=== PATIENT | female | born 1995 | race Caucasian/White ===

== ENCOUNTER 2023-09-04 18:14 | Outpatient (CLI) | payer OTHER, SELFPAY ==
[2023-09-04 22:30] LABS: Chlamydia DNA Amplified* NOT DETECTED (No Detected); GC DNA Amplified* NOT DETECTED (No Detected)
== END 2023-09-04 18:15 | disposition home or self-care (01) ==
PROVIDERS: Visit Provider Registered Nurse
DX: Z34.91 Encounter for supervision of normal pregnancy, unspecified, first trimester (principal)
CPT/HCPCS: 86592; 86703; 86704; 86706; 86762; 86787; 86803; 86850; 86900; 86901; 87086; 87340; 87491; 87591

== ENCOUNTER 2023-11-21 06:56 | Outpatient (CLI) | payer OTHER, SELFPAY ==
--- NOTE | 2023-11-21 07:15 | US_ITS ---
Patient: CEM GREGORIO Facility:?[facility] Patient ID:?[id number] Site Patient ID:?[id number]. Site :?[id number] Study:?US-OB Pelvis anatomy-11/21/2023 8:12:37 AM Ordering Physician:VIKA Final Report: INDICATION: Evaluate anatomy. COMPARISON: none TECHNIQUE: Real time us scale imaging of the fetus was performed as well as color Doppler analysis of the umbilical vessels. FINDINGS: Sonographic imaging demonstrates a single living intrauterine gestation. Fetus demonstrates a regular cardiac rate of 142 beats per minute. Fetus has a yakelin breech position. The placenta lies anteriorly without evidence of placenta previa. Placental edge 4.0 cm from the internal cervical os. Amniotic fluid volume appears normal. Single deepest vertical pocket: 4.5 cm. The cervix is closed and measures 3.7 cm in length. The composite ultrasound gestational age is calculated at 21 weeks 1 day with an estimated sonographic due date of 04/01/2024. The estimated weight is 420 grams which lies at the 86th %. The following biometric measurements were obtained: Biparietal diameter: 4.8 cm/20 weeks 4 days 48th% Head circumference: 18.1 cm/20 weeks 4 days 39th% Abdominal circumference: 17.3 cm/22 weeks 2 days 90th% Femur length: 3.4 cm/20 weeks 5 days 44th% The HC/AC ratio measures: 1.05 range (1.06-1.25) On anatomic survey, there is a normal appearance of the cerebral ventricles, cavum septi pellucidi, cisterna magna and cerebellum. The nose, lips, and facial profile appear normal. The cervical, thoracic and lumbar spine are well visualized and appear normal. There is a normal four-chamber heart view and the left and right ventricular outflow tracts appear normal. The diaphragm and stomach appear normal. The kidneys and bladder also appear normal. There is a normal three-vessel cord and cord insertion site. The four extremities appear normal. IMPRESSION: Normal OB ultrasound exam with concordance of clinical and sonographic dating. No intrinsic abnormalities noted on anatomic survey. Dictated by Rayn Abernathy MD @ 11/21/2023 11:11:31 AM Signed by:?Ryan Abernathy MD @11/21/2023 11:11:31 AM (Electronic Signature)
== END 2023-11-21 06:57 | disposition home or self-care (01) ==
LOC: US 06:57
PROVIDERS: Visit Provider Physician Assistant
DX: Z34.92 Encounter for supervision of normal pregnancy, unspecified, second trimester (principal); Z3A.21 21 weeks gestation of pregnancy
CPT/HCPCS: 76805

== ENCOUNTER 2024-01-18 15:12 | Outpatient (CLI) | payer OTHER, SELFPAY | END 2024-01-18 15:13 | disposition home or self-care (01) | LOC: NFLDREF 01-21 05:14 | PROVIDERS: Visit Provider Advanced Practice Midwife | DX: Z34.03 Encounter for supervision of normal first pregnancy, third trimester (principal) | CPT/HCPCS: 86592 ==

== ENCOUNTER 2024-03-12 14:55 | Outpatient (CLI) | payer OTHER, SELFPAY ==
[2024-03-13 22:57] LABS: Strep B DNA Probe POSITIVE (Negative)
[2024-03-13 23:11] LABS: Strep B Susceptibility Needed? No
== END 2024-03-12 14:56 | disposition home or self-care (01) ==
LOC: NFLDREF 14:55
PROVIDERS: Visit Provider Advanced Practice Midwife
DX: Z34.93 Encounter for supervision of normal pregnancy, unspecified, third trimester (principal); Z3A.36 36 weeks gestation of pregnancy
CPT/HCPCS: 87081; 87653

== ENCOUNTER 2024-04-10 03:35 | Inpatient (IN) | payer OTHER, SELFPAY ==
[2024-04-10] VITALS (62 sets, daily range): BP systolic 126–185; BP diastolic 71–98; PULSE 57–96; RESP 16–22; TEMP 36.4–36.8; O2SAT 71–100; BMI 35.5
[2024-04-10 04:42] LABS: Basophils Absolute Auto 0.01 K/uL (0.00-0.30); Basophils Percent Auto 0.1 % (0.0-3.0); Eosinophils Absolute Auto 0.04 K/uL (0.00-0.50); Eosinophils Percent Auto 0.4 % (0.0-7.0); Hematocrit 35.9 % (33.0-51.0); Hemoglobin* 11.6 gm/dL (12.0-16.0); Immature Granulocytes Abs Auto 0.02 K/uL (0.00-0.30); Immature Granulocytes Pct Auto 0.2 %; Lymphocytes Absolute Auto 2.05 K/uL (0.90-2.90); Mean Corpuscular HGB Conc 32 gm/dL (32-36); Mean Corpuscular Hemoglobin 28 pg (26-34); Mean Corpuscular Volume 85 fL (80-100); Monocytes Percent Auto 7.9 % (0.0-11.0); Neutrophils Absolute Auto 6.85 K/uL (1.7-7.0); Neutrophils Percent Auto 70.4 % (42.0-72.0); Platelet Count* 186 K/uL (140-440); RDW Coefficient of Variation % 13.3 % (11.5-15.5); Red Blood Count 4.21 m/uL (4.00-5.20); Slide Review Reflex No; White Blood Count* 9.74 K/uL (4.50-11.00)
[2024-04-10 04:57] LABS: Alanine Aminotransferase* 15 U/L (4-35); Aspartate Amino Transferase* 25 U/L (12-35); Blood Urea Nitrogen* 8 mg/dL (5-24); Creatinine* 0.6 mg/dL (0.5-1.5); Est. Creatinine Clearance* 136.96; Estimated Glomerular Filt Rate 126 ml/min
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
[2024-04-10] MEDS: AMPICILLIN 2 GM in 0.9 % SODIUM CHLORIDE Mini-bag 100 ML IVPB (05:22)
[2024-04-10] MEDS: LACTATED RINGERS 1000 ML 1,000 ML 125 ML IV (05:23)
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
[2024-04-10] MEDS: AMPICILLIN 1 GM in 0.9 % SODIUM CHLORIDE Mini-bag 100 ML IVPB ×2 (09:24→14:28)
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
[2024-04-10] MEDS: OXYTOCIN 30 unit/500 ML in NS 30 UNIT/500 ML BAG IVPB (14:42)
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
--- NOTE | 2024-04-10 16:00 | P.OBCN_ITS ---
OB - CN: HPI Date of Consult Time Seen by Provider: 16:00 Date Seen: 04/10/24 Patient: [facility] Patient Consult date: 04/10/24 Requesting Physician: Guillermina Boudreaux CNM Primary Care Provider: Not a Local Provider Consult Narrative Reason for consult: nonreassuring FHTs Narrative: The patient is a 28 year old G 1 P 0 at 5/7 weeks gestation that was admitted to the Center on 04/10/24 in labor for delivery. Patient admitted this morning by CNM group, patient found in active labor and progressing adequately. Additional interventions so far have been a ROM and Oxytocin was started earlier due to protracted active stage of labor. At around 11:30am NST showing a prolonged deceleration that recovered after position changes, IVFs. Before this episode and after NST showing moderate variability and accelerations. After this episode sporadic variable, late like decelerations happened but in general she had continued progressing to 9cm and NST showed continued moderate variability and accelerations. Close to 3pm CNM team started IV Oxytocin and after this time it seemed like decelerations became more frequent, unable to characterize the nature of decelerations at the time. I had been unofficially consulted, to be aware of her case due to NST changes. I had unofficially recommended placement of internal monitors to be able to characterize decelerations, but then another episode of prolonged deceleration happened at around 3:45pm and I was called in by team. Official recommendation given to proceed with delivery as no further progression or descent had been noted and baby not tolerating vaginal delivery process. Please refer to CN H&P for further details. History of Present Dating criteria: based on 1st trimester US only care: good care History History 1 Elective abortions Para 0 Spontaneous abortions Hx # Term Pregnancies Ectopic pregnancies Hx # Pregnancies Multiple births Number of Living Children 0 Labs GBS status: positive OB Labs: Lab Assessment Start: 04/10/24 03:34 Freq: ONCE Status: Complete Protocol: PC.OBGBS Activity Type Activity Date Activity User E-sign Co-sign Detail Recorded Client Recorded Date Recorded By Document 04/10/24 03:49 LAMBERTA Desktop 04/10/24 03:52 LAMBERTA 04/10/24 03:49 Lab Assessment GBS Status positive GBS Additional Criteria None Is Patient Allergic to Penicillin? 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 What is your current living situation?: I presently have a place to live Problems where you live: no known problems In the past 12 months, utilities in danger of being shut off: no In past 12 months, lack of transportation kept you from medical appts, meetings, work, or getting things needed for daily living: no In the past 12 mos, have been you worried that your food would run out before you had money to buy more?: never true In the past 12 mos, the food you bought just didn't last and you didn't have money to buy more?: never true Smoking Status: Never smoker How often does anyone, including family, friends and others, physically hurt you : never How often does anyone, including family, friends and others, insult or talk down to you: never How often does anyone, including family, friends and others, threaten you with harm: never How often does anyone, including family, friends and others, scream or curse at you: never Little interest or pleasure in doing things: several days Feeling down, depressed, or hopeless: several days Meds Home Medications and Allergies Home Medications ?Medication ?Instructions ?Recorded ?Confirmed ?Type docosahexaenoic acid 200 mg 1 mg PO DAILY 11/21/23 04/10/24 History capsule ( DHA) Allergies Allergy/AdvReac Type Severity Reaction Status Date / Time codeine AdvReac Intermediate Vomiting Verified 04/10/24 03:48 OB - H&P: Exam Physical Exam: Vital signs: Temp Pulse Resp BP Pulse Ox 98.2 F 76 20 133/72 98 04/10/24 13:45 04/10/24 13:34 04/10/24 13:34 04/10/24 13:34 04/10/24 15:59 Narrative: Now in the hand and knees position. NST: 130bpm/moderate variability/ positive accelerations/variable decelerations that seem sporadic at the moment. Cervical exam as per CN station OB - Results Labs Labs: Short CBC 04/10/24 Range/Units 04:35 WBC 9.74 (4.50-11.00) K/uL Hgb 11.6 L (12.0-16.0) gm/dL Hct 35.9 (33.0-51.0) % Plt Count 186 (140-440) K/uL BMP 04/10/24 04:35 BUN 8 Creatinine 0.6 Liver Function 04/10/24 Range/Units 04:35 AST 25 (12-35) U/L ALT 15 (4-35) U/L OB - CN: A/P Assessment and Plan (1) Pain during labor: Status: Acute (2) 40 weeks gestation of : Status: Acute Plan delivery due to non reassuring status, far from completing vaginal delivery. Discussed how surgery is performed, low transverse incision in the lower abdomen, that same incision is performed in the lower uterine segment. Baby seems to be at a high enough station for us not to have to many issues with abdominal delivery. Discussed family centered delivery. Discussed risks of surgery to include bleeding and needing a blood transfusion, infection, damage to nearby organs, blood clots. Discussed interventions to decrease risks such as prophylactic antibiotics, SCDs etc... Briefly discussed how recovery varies from a vaginal delivery. At this moment, tracing has recovered but status only reassuring in the hands and knees position, will attempt to proceed quickly but at this moment not a code white situation. Anesthesia aware.
[2024-04-10] MEDS: AZITHROMYCIN 500 MG in 0.9 % SODIUM CHLORIDE 250 ml 250 ML 255 MG IVPB (16:01)
--- NOTE | 2024-04-10 16:20 | PM.OBPRCCS ---
Procedure Time Seen by Provider: 17:51 Date of procedure: 04/10/24 Pre-op diagnosis: Non reassuring heart rate tracing far from delivery Post-op diagnosis: same (Uterine atony w/o hemorrhage) Procedure Done: Global Will [facility] bill your pro fee for this procedure?: Yes Blood Loss Measurement Type: QBL (973mL) Bakri Used: No IV fluids (mL): 1,000 Urine Output (mL): 100 Urine Output Comment: Clear at end of procedure Surgeon: iLtzy Montes MD Anesthesia Type: Spinal Findings: FINDINGS: Live-born female infant, vertex OP presentation, 1 tight nuchal cord, Apgars 7 and 7 at 1 and 5 minutes respectively. weight 8 lb 14 oz. Hysterotomy extension on the right side of about 2cm towards the lower uterine segment. Intact broad/cardinal ligaments bilaterally. Grossly normal bilateral fallopian tubes and ovaries, normal appendix. Procedure Name: Primary low transverse section Procedure Description: PROCEDURE: After obtaining informed consent, the patient was taken to the operating room where spinal anesthesia was obtained and found to be adequate. She was placed dorsal supine position with a leftward tilt. heart tones after placement of spinal anesthesia found to be low on the 80-90s. Decision made to proceed in an emergent manner. The abdomen was splashed with Betadine. A Khan catheter had already been placed while looking for heart tones, OB nurses were able to place catheter very quickly. A Pfannenstiel skin incision was made with a scalpel about 2 cm above symphysis pubic bone, 12-14 cm in length. This incision was carried down to the underlying layer of fascia with the scalpel. The fascia was incised in the midline and the incision extended laterally. The rectus muscles were then in the midline. The Dakota O retractor was then placed into the incision. The lower uterine segment was then incised in a transverse fashion with the scalpel. Upon entry into the uterus, meconium stained amniotic fluid was noted. The uterine incision was extended cephalo caudally with blunt finger fractionation. OP presentation noted as well as tight nuchal cord. head was brought up to incision with difficulty mostly due to lack of space in the pelvis. I was able to lift the head, but then baby hyperextend head, I was able to grasp occiput and gently flex head and present it to incision, then head delivered with fundal pressure and the rest of the body assisted out easily. The cord was doubly clamped and cut, and the was handed off the field to warmer for evaluation. The placenta was delivered spontaneously with umbilical cord traction and fundal massage. 2 clamps placed for collection of cord gases. The uterus was cleared of all clots and debris. Uterine atony identified and treated with TXA 1g x1, rectal Cytotec 800mcg and one dose of IM Methergine. The uterine incision was reapproximated in a running locking fashion with a 0 Vicryl suture. A 2nd layer of the same suture was used to imbricate in horizontal fashion. Tavo utilized to further secure hemostasis mostly from serosal edge at the hysterotomy corners. The gutters were inspected and cleared of blood clot. All instruments and retractors were removed. Peritoneal layer identified with Arline forceps and re approximated with Vicryl 3-0 in a continuous fashion. Muscles inspected and hemostasis secured. The fascia was reapproximated in a running fashion with a looped 0 Vicryl suture. The subcutaneous tissues were inspected, irrigated and hemostasis was assured. The subcutaneous fat layer was reapproximated with running sutures of 3-0 Vicryl. The skin was closed in a subcuticular fashion with 4-0 Monocryl. LiquiBand and dressing were applied. The patient tolerated the procedure well. Sponge, lap, needle, and instrument counts were reported as correct x2. The patient was taken to the recovery room, awake, and in stable condition. She did receive 3 grams of IV Ancef and 500mg of IV Azithromycin preoperatively. Complications: None Pathology: specimen obtained, sent to pathology (Placenta) Surgery Debrief Performed: Yes Condition: stable Disposition: floor
[2024-04-10] MEDS: CEFAZOLIN 1 GM inj 3 GM IVP (16:40)
[2024-04-10] MEDS: miSOPROStoL 800 MCG/4 TABLET PR (16:50)
[2024-04-10] MEDS: KETOROLAC 30 MG/ML inj IVP (17:30)
--- NOTE | 2024-04-10 18:04 | W.ANESCHARGE ---
Anesthesia Charges Start Date/Time Anesthesia Start Date: 04/10/24 Anesthesia Start Time: 16:32 Stop Date/Time Anesthesia Stop Date: 04/10/24 Anesthesia Stop Time: 17:56 Summary Emergency: MDA
--- NOTE | 2024-04-10 18:07 | W.ANESCHARGE ---
Anesthesia Charges Start Date/Time Anesthesia Start Date: 04/10/24 Anesthesia Start Time: 16:32 Stop Date/Time Anesthesia Stop Date: 04/10/24 Anesthesia Stop Time: 17:56 Summary Emergency: MDA
--- NOTE | 2024-04-10 18:08 | W.PM.NB ---
Nerve Block Nerve Block Time Seen by Provider: 17:50 Date Seen: 04/10/24 Type of block requested by surgeon for post-operative analgesia: TAP Side: bilateral Time out performed: Yes Verification of patient name: Yes Verification of date of : Yes Site marking: not applicable Name of person performing procedure: Merle Continuous monitoring Was continuous monitoring of O2 sat, B/P, paper cutter operator, recorded every 15 minutes?: Yes Procedure Checklist: sterile prep, needles and gloves Ultrasound guided. Images saved: Yes Medications given in 5ml increments after negative aspiration: Marcaine %: 0.25 mL: 30 Needle gauge: 20 and Exparel mL: 10 Needle gauge: 20 Patient tolerated procedure well: Yes Block Charges Block Charge (with Pro Fee): TAP Bilateral Use of Ultrasound Machine for Block: Yes- US Guidance/pain block
[2024-04-10 19:22] LABS: Hematocrit 38.3 % (33.0-51.0); Hemoglobin* 12.6 gm/dL (12.0-16.0); Mean Corpuscular HGB Conc 33 gm/dL (32-36); Mean Corpuscular Hemoglobin 28 pg (26-34); Mean Corpuscular Volume 84 fL (80-100); Platelet Count* 197 K/uL (140-440); Red Blood Count 4.54 m/uL (4.00-5.20)
[2024-04-10 19:29] LABS: Slide Review Reflex No
[2024-04-10 19:39] LABS: Creatinine* 0.6 mg/dL (0.5-1.5); Est. Creatinine Clearance* 136.96; Estimated Glomerular Filt Rate 126 ml/min
[2024-04-10 19:40] LABS: Alanine Aminotransferase* 15 U/L (4-35); Aspartate Amino Transferase* 29 U/L (12-35); Blood Urea Nitrogen* 7 mg/dL (5-24)
[2024-04-10 20:58] LABS: Total Protein Urine 14 mg/dL
[2024-04-10] MEDS: SCOPOLAMINE 1 MG/3 DAY PATCH 1 PATCH TRANSDERMA (21:10)
[2024-04-10 21:14] LABS: Creatinine Urine 292.4 mg/dL; Protein Creatinine Ratio Urine 0.05 (0-0.19)
[2024-04-10] MEDS: LACTATED RINGERS 1000 ML 1,000 ML 500 ML IV (22:02)
[2024-04-11] VITALS (40 sets, daily range): BP systolic 109–160; BP diastolic 71–105; PULSE 54–90; RESP 16; TEMP 36.5–36.9; O2SAT 96–100
[2024-04-11] MEDS: PROMETHAZINE 25 MG/ML INJ 12.5 MG IVP (00:01)
[2024-04-11] MEDS: ONDANSETRON 2 MG/ML inj 4 MG IVP (00:02)
[2024-04-11] MEDS: IBUPROFEN 600 MG TABLET PO ×2 (00:36→06:36)
[2024-04-11] MEDS: ACETAMINOPHEN 500 MG TABLET 1000 MG PO ×2 (00:36→06:37)
[2024-04-11] MEDS: NIFEdipine 30 MG TAB.ER.24 PO ×2 (00:37→21:27)
[2024-04-11] MEDS: MAGNESIUM IV 4 GM/100 ML PIGGYBACK IVPB (01:28)
[2024-04-11 01:53] LABS: Hematocrit 36.6 % (33.0-51.0); Mean Corpuscular HGB Conc 33 gm/dL (32-36); Mean Corpuscular Hemoglobin 28 pg (26-34); Mean Corpuscular Volume 85 fL (80-100); Platelet Count* 203 K/uL (140-440); Red Blood Count 4.29 m/uL (4.00-5.20); White Blood Count* 21.37 K/uL (4.50-11.00)
[2024-04-11 01:58] LABS: Slide Review Reflex No
[2024-04-11] MEDS: MAGNESIUM Infusion 40 GM/1,000 ML IV.SOLN IVPB ×2 (02:02→22:36)
[2024-04-11 02:11] LABS: Alanine Aminotransferase* 14 U/L (4-35); Aspartate Amino Transferase* 32 U/L (12-35); Blood Urea Nitrogen* 8 mg/dL (5-24); Creatinine* 0.6 mg/dL (0.5-1.5); Est. Creatinine Clearance* 136.96; Estimated Glomerular Filt Rate 126 ml/min
[2024-04-11 07:32] LABS: Hematocrit 34.5 % (33.0-51.0); Hemoglobin* 11.1 gm/dL (12.0-16.0); Mean Corpuscular HGB Conc 32 gm/dL (32-36); Mean Corpuscular Hemoglobin 28 pg (26-34); Mean Corpuscular Volume 86 fL (80-100); Platelet Count* 197 K/uL (140-440); Red Blood Count 4.03 m/uL (4.00-5.20); White Blood Count* 19.67 K/uL (4.50-11.00)
[2024-04-11 07:46] LABS: Alanine Aminotransferase* 13 U/L (4-35); Aspartate Amino Transferase* 28 U/L (12-35); Blood Urea Nitrogen* 9 mg/dL (5-24); Creatinine* 0.6 mg/dL (0.5-1.5); Est. Creatinine Clearance* 136.96; Estimated Glomerular Filt Rate 126 ml/min
[2024-04-11 07:48] LABS: Magnesium* 5.1 mg/dL (1.5-2.6)
[2024-04-11 07:49] LABS: Slide Review Reflex No
--- NOTE | 2024-04-11 08:21 | PM.OBPNVD1 ---
OB - PN:Subj Subjective Time Seen by Provider: 08:22 Date Seen: 04/11/24 Interval history: Helen had lots of nausea and vomiting last night but this morning is feeling much better. She is on magnesium for severe preeclampsia by blood pressure criteria. She is status post a section yesterday evening for nonreassuring heart rate tracing. Her pain is well controlled. She is eating some crackers this morning. She has passed flatus. Catheter is in place. Patient comments OB post-: no complaints, pain well controlled, tolerating diet and flatus present [place] infant status: feeding status: exclusively OB - PN: Obj Exam Physical Exam: Vital signs: Temp Pulse Resp BP Pulse Ox O2 Del Method 98.2 F 81 16 123/76 100 Room Air 04/11/24 08:13 04/11/24 08:13 04/11/24 08:13 04/11/24 08:13 04/11/24 08:13 04/11/24 08:13 Narrative: GENERAL APPEARANCE: Pleasant, , well-groomed woman in no acute distress. VITAL SIGNS: as noted in nursing notes LUNGS: Clear to auscultation bilaterally without wheezes, rales or rhonchi. HEART: Regular rate and rhythm with normal S1 and S2. No gallop, rub or murmur. ABDOMEN: Gravid. Soft, nontender, nondistended, with normal bowels sounds throughout. FUNDUS: Firm, 1 cm below the umbilicus in the midline. EXTREMITIES: No cyanosis, clubbing, or varicosities. 1-2 +edema to the mid mckee, SCDs in place. NEUROLOGIC: Normal deep tendon reflexes at bilateral patella 2+/2, equal without clonus. PSYCHIATRIC: alert and oriented x3. Normal speech pattern, eye contact and affect. SKIN: Warm, dry, and well perfused. Good turgor. No lesions, nodules or rashes. Urinary Catheter Management: Urethral: Cath placed during this visit: yes Urethral indwelling: Yes Reason for continuing: surgical procedure Insertion date: 04/10/24 Insertion time: 16:38 OB - PN: Obj Data Labs Labs: Laboratory Results - last 24 hr 04/10/24 04/10/24 04/11/24 19:15 20:30 01:45 WBC 21.00 H 21.37 H RBC 4.54 4.29 Hgb 12.6 12.0 Hct 38.3 36.6 MCV 84 85 MCH 28 28 MCHC 33 33 Plt Count 197 203 BUN 7 8 Creatinine 0.6 0.6 Estimated Creat Clear 136.96 136.96 Estimated GFR 126 126 Magnesium AST 29 32 ALT 15 14 Urine Creatinine 292.4 Protein/Creatinin Ratio 0.05 Urine Total Protein 14 //24 07:26 WBC 19.67 H RBC 4.03 Hgb 11.1 L Hct 34.5 MCV 86 MCH 28 MCHC 32 Plt Count 197 BUN 9 Creatinine 0.6 Estimated Creat Clear 136.96 Estimated GFR 126 Magnesium 5.1 H* AST 28 ALT 13 Urine Creatinine Protein/Creatinin Ratio Urine Total Protein OB - PN: A/P Delivery Assessment and Plan (1) Pain during labor: Status: Acute (2) 40 weeks gestation of : Status: Acute (3) Gestational hypertension: Problem details: Severe range blood pressure. Status: Acute Assessment and Plan: 1. Continue nifedipine ER 30 mg daily 2. Continue magnesium for 24 hours total 3. Daily preeclampsia labs 4. Postop cares.
[2024-04-11] MEDS: DOCUSATE SODIUM 100 MG CAPSULE PO (08:36)
[2024-04-11] MEDS: ENOXAPARIN 40 MG/0.4 ML INJ SUBCUT (08:36)
[2024-04-11] MEDS: KETOROLAC 30 MG/ML inj IVP ×2 (13:21→19:44)
[2024-04-11] MEDS: LACTATED RINGERS 1000 ML 1,000 ML 75 ML IV (13:47)
[2024-04-11 19:37] LABS: Hematocrit 32.8 % (33.0-51.0); Hemoglobin* 10.6 gm/dL (12.0-16.0); Mean Corpuscular HGB Conc 32 gm/dL (32-36); Mean Corpuscular Hemoglobin 28 pg (26-34); Mean Corpuscular Volume 87 fL (80-100); Platelet Count* 223 K/uL (140-440); Red Blood Count 3.78 m/uL (4.00-5.20); White Blood Count* 15.15 K/uL (4.50-11.00)
[2024-04-11 19:44] LABS: Slide Review Reflex No
[2024-04-11 20:03] LABS: Aspartate Amino Transferase* 27 U/L (12-35); Creatinine* 0.6 mg/dL (0.5-1.5); Est. Creatinine Clearance* 136.96; Estimated Glomerular Filt Rate 126 ml/min
[2024-04-11 20:04] LABS: Alanine Aminotransferase* 11 U/L (4-35); Blood Urea Nitrogen* 7 mg/dL (5-24)
[2024-04-11] MEDS: LANOLIN CREAM 1 APPLIC TOPICAL (20:40)
[2024-04-11 20:55] LABS: Rapid Plasma Reagin (RPR) Non Reactive (Non Reactive)
[2024-04-11 21:04] LABS: Magnesium* 5.1 mg/dL (1.5-2.6)
[2024-04-12 00:47] VITALS: BP 123/76; PULSE 93; RESP 16; TEMP 36.8; O2SAT 97
[2024-04-12] MEDS: KETOROLAC 30 MG/ML inj IVP ×3 (01:43→14:02)
[2024-04-12 01:58] LABS: Hematocrit 31.8 % (33.0-51.0); Hemoglobin* 10.2 gm/dL (12.0-16.0); Mean Corpuscular HGB Conc 32 gm/dL (32-36); Mean Corpuscular Hemoglobin 28 pg (26-34); Mean Corpuscular Volume 86 fL (80-100); Platelet Count* 231 K/uL (140-440); Red Blood Count 3.69 m/uL (4.00-5.20); White Blood Count* 14.61 K/uL (4.50-11.00)
[2024-04-12 02:08] LABS: Slide Review Reflex No
[2024-04-12 02:20] LABS: Alanine Aminotransferase* 12 U/L (4-35); Aspartate Amino Transferase* 30 U/L (12-35); Creatinine* 0.6 mg/dL (0.5-1.5); Est. Creatinine Clearance* 136.96; Estimated Glomerular Filt Rate 126 ml/min
[2024-04-12 02:21] LABS: Blood Urea Nitrogen* 9 mg/dL (5-24)
[2024-04-12 02:29] LABS: Magnesium* 5.5 mg/dL (1.5-2.6)
[2024-04-12 04:07] VITALS: BP 123/76; PULSE 79; RESP 16; TEMP 36.9; O2SAT 95
[2024-04-12] MEDS: DOCUSATE SODIUM 100 MG CAPSULE PO (07:28)
--- NOTE | 2024-04-12 07:30 | PM.OBPNVD1 ---
OB - PN:Subj Subjective Date Seen: 04/12/24 Narrative: Helen is a 28 y.o. who was admitted to [facility] for spontaneous onset of labor. ?She had a primary for intolerance.? The patient feels well.?She is experiencing a migraine currently behind left eye, which is her norm. Current BP is 134/85. The pain is well controlled with current medications.?RN to ask OB for recommendation for pain med for the migraine. I do not see any specific migraine med listed in her outpatient chart. She has no new complaints.? Urinary output is adequate and she is voiding without difficulty.? Has a good appetite, is tolerating a general diet, is passing flatus, and has not had a bowel movement.? Has scant amount of rubra lochia.? She is ambulating well. She is and reports it is going well, but does have some nipple pain.?She is planning condoms for contraception. OB - PN: Obj Exam Physical Exam: Vital signs: Temp Pulse Resp BP Pulse Ox O2 Del Method 98.4 F 79 16 123/76 95 Room Air 04/12/24 04:07 04/12/24 04:07 04/12/24 04:07 04/12/24 04:07 04/12/24 04:07 04/12/24 00:47 Narrative: GENERAL APPEARANCE:? normal affect, alert, no distress MOOD:? appropriate CHEST:? clear to auscultation HEART:? regular rate and rhythm ABDOMEN:? soft, non-tender the uterine fundus is 1 cm below Umbilicus, Midline and is appropriate for the stage of recovery. EXTREMITIES:? normal and mild edema Incision: Healing well, no surrounding erythema, abnormal induration or discharge Urinary Catheter Management: Urethral: Cath placed during this visit: yes, but has since been removed by the nurse Urethral indwelling: Yes Reason for continuing: surgical procedure Insertion date: 04/10/24 Insertion time: 16:38 Removal date: 04/11/24 Removal time: 08:00 OB - PN: Obj Data Labs Labs: Laboratory Results - last 24 hr 04/10/24 04/11/24 04/11/24 04:35 07: 19:33 WBC 19.67 H 15.15 H RBC 4.03 3.78 L Hgb 11.1 L 10.6 L Hct 34.5 32.8 L MCV 86 87 MCH 28 28 MCHC 32 32 Plt Count 197 223 BUN 9 7 Creatinine 0.6 0.6 Estimated Creat Clear 136.96 136.96 Estimated GFR 126 126 Magnesium 5.1 H* 5.1 H* AST 28 27 ALT 13 11 RPR Screen Non Reactive 04/12/24 01:51 WBC 14.61 H RBC 3.69 L Hgb 10.2 L Hct 31.8 L MCV 86 MCH 28 MCHC 32 Plt Count 231 BUN 9 Creatinine 0.6 Estimated Creat Clear 136.96 Estimated GFR 126 Magnesium 5.5 H* AST 30 ALT 12 RPR Screen OB - PN: A/P Delivery Assessment and Plan (1) Gestational hypertension: Problem details: Severe range blood pressure. Status: Acute (2) Status post delivery: Status: Acute (3) Migraine without aura: Status: Acute (4) Anxiety and depression: Problem details: Lexapro 10mg Status: Acute Plan Follow up in 2 weeks and 6 weeks.? , may see if needed? Hgb 10.2. ? GHTN with severe range BP managed by OB, currently off of Magnesium? Labs WNL Reviewed signs and symptoms to report when discharged. They are anticipating tomorrow. Reviewed Nipple care and importance of deep latch Reviewed risk for PP depression. Encouraged to call with concerns or struggles. Call for signs/symptoms of preeclampsia? Plan day: 2 Plan: routine care (With Hypertension management by OB )
[2024-04-12 07:32] VITALS: BP 134/85; PULSE 79; RESP 16; TEMP 36.8; O2SAT 97
[2024-04-12] MEDS: ENOXAPARIN 40 MG/0.4 ML INJ SUBCUT (07:38)
[2024-04-12 11:57] VITALS: BP 125/79; PULSE 75; RESP 16; TEMP 36.6; O2SAT 97
[2024-04-12 16:15] VITALS: BP 130/82; PULSE 75; RESP 16; TEMP 36.8; O2SAT 97
[2024-04-12] MEDS: IBUPROFEN 600 MG TABLET PO (20:45)
[2024-04-12] MEDS: NIFEdipine 30 MG TAB.ER.24 PO (20:45)
[2024-04-12 20:47] VITALS: BP 128/85; PULSE 76; RESP 16; TEMP 36.9; O2SAT 98
[2024-04-13 04:59] VITALS: BP 135/92
[2024-04-13] MEDS: IBUPROFEN 600 MG TABLET PO ×2 (04:59→11:00)
[2024-04-13 07:31] VITALS: BP 122/76; PULSE 69; RESP 16; TEMP 36.7; O2SAT 99
[2024-04-13] MEDS: DOCUSATE SODIUM 100 MG CAPSULE PO (07:50)
[2024-04-13] MEDS: OXYCODONE 5 MG TABLET PO (07:50)
[2024-04-13] MEDS: ENOXAPARIN 40 MG/0.4 ML INJ SUBCUT (07:50)
[2024-04-13] MEDS: ACETAMINOPHEN 500 MG TABLET 1000 MG PO (07:51)
--- NOTE | 2024-04-13 10:22 | PM.OBDSVD1 ---
DS: Providers Provider Time Seen by Provider: 08:30 Date Seen: 04/13/24 Date of admission: 04/10/24 03:35 Primary care physician: Not a Local Provider Admitting Clinician: Lory Maloney CNM Attending Physician on discharge: Lory Maloney CNM Date of Discharge: 04/13/24 DS: Diagnosis Discharge Diagnosis (1) Gestational hypertension: Status: Acute Problem details: Severe range blood pressure. (2) Status post delivery: Status: Acute (3) Polydactyly: Status: Acute Problem details: Patient born with extra digit. Patient's mother born with 2 extra digits. (4) Migraine without aura: Status: Acute (5) Anxiety and depression: Status: Acute Problem details: Lexapro 10mg Exam Narrative: Exam Narrative: Physical exam: General: No acute distress Psych: Alert and oriented x4, full affect HEENT: Normocephalic, atraumatic Neck: No cervical adenopathy, no thyromegaly Heart: Regular rate and rhythm, no murmur rub or gallop Lungs: Clear to auscultation bilaterally Abdomen: Normoactive bowel sounds, soft, no tenderness, rebound, or guarding. Uterus firm and low 2 cm below umbilicus. Incision: Appropriately tender to palpation. Clean, dry, and intact. No erythema, induration, or abnormal discharge/breakdown Skin: No lesions or rashes Lower extremities: 1+ bilateral lower extremity edema Pelvic exam: no bleeding on pad Const: Vital Signs, click to edit/add: Vital Signs - 24 hr 04/12/24 11:57 04/12/24 16:15 04/12/24 20:47 Temperature 98 F 98.2 F 98.5 F Pulse Rate [Pulse Oximeter] 75 75 76 Respiratory Rate 16 16 16 Blood Pressure [Le ft Arm] 125/79 130/82 128/85 Pulse Oximetry 97 97 98 Oxygen Delivery Me thod Room Air Room Air 04/13/24 04:59 04/13/24 07:31 Temperature 98.1 F Pulse Rate [Pulse Oximeter] 69 Respiratory Rate 16 Blood Pressure [Le ft Arm] 135/92 H 122/76 Pulse Oximetry 99 Oxygen Delivery Me thod Room Air OB - DS: Summary Hospital Course Hospital Course: The patient is a 28 year old G1 P 1001 at 41.0 weeks gestation that was admitted to the Center on 04/10/24 for IOL. She had an uncomplicated delivery for nonreassuring heart tracing remote from delivery. She delivered a viable female infant. She is breast feeding. she was diagnosed with severe preeclampsia and started on Magnesium sulfate for seizure prophylaxis. She received 24 hours of magnesium sulfate and had over 24 hours of monitoring after. Her blood pressure is well controlled on nifedipine 30 mg XL q.day. Overnight patient had no complaints. Her pain is well controlled on oral pain medications. She is tolerating a regular diet. She has passed flatus. She is ambulating without difficulty. Lochia is scant. She is urinating without worrell. Patient denies chest pain, SOB, n/v, headache, RUQ pain, vision changes, dizziness. Will do blood pressure teaching. Postoperative/post delivery Review: - Admitted for: Induction of labor - Surgical procedure: Primary delivery - Skin incision: Pfannenstiel - Closure: sutures - Quantitative blood loss: 973 mL - Intraoperative Complications: none Pre-Eclampsia with severe features - Based on severe ranging blood pressures - BPs overnight: 110-130s/70-80s - Symptoms: asymptomatic - Magnesium: s/p 24 hours of mag sulftate - IV antihypertensives: currently unindicated - PO antihypertensives: Nifedipine 30 mg XL QD - Pre-eclampsia labs on 04/12/24: Hgb 10.2 Plt 231 Cr 0.6 ALT 12 AST 30 Acute blood loss anemia - Hgb stable at 10.2 - Urine output: 1.33 cc/kg/hr Discharge Planning - Contraception: Declined - Follow up in 3-5 days for incision check and/or staple removal/ BP check in clinic - Follow Up: follow-up at 2 weeks and 6 weeks in clinic Dispo: Patient is POD#3. Need the following milestones: none. Stable and appropriate for discharge on POD#3. Time spent discussing smoking cessation with patient: more than 10 minutes Peripartum Data Procedures: Procedures Operation Date: 04/10/24 17:15 Actual Procedure Side Surgeon p Primary Low Transverse Section Kika Montes MD Infant Gender: Female Time Spent with Patient Time attestation: Total time spent providing and/or coordinating discharge services: Discharge Plan Discharge Disposition: Home, Self-Care Date of Admission: 04/10/24 03:35 Attending Provider on Discharge: Danielle Richard Primary Care Provider: Provider,Not a Local Condition: Stable Anticipated Discharge Date/Time: 04/13/24 09:52 Discharge Medications: New acetaminophen 500 mg Tablet 1,000 mg PO Q6H PRN (Reason: Pain) 30 Days Qty: 60 0RF calcium carbonate 200 mg calcium (500 mg) Tablet,Chewable 1,000 - 2,000 mg PO Q2H PRN30 Days Qty: 60 0RF docusate sodium 100 mg Capsule 100 mg PO DAILY 30 Days Qty: 30 0RF nifedipine 30 mg Tablet Extended Release 24hr 30 mg PO HS 30 Days Qty: 30 1RF ibuprofen 600 mg Tablet 600 mg PO Q6H PRN (Reason: Pain) 30 Days Qty: 60 0RF simethicone 80 mg Tablet,Chewable 80 - 160 mg PO Q4H PRN (Reason: Gas) 30 Days Qty: 60 0RF oxycodone 5 mg Tablet 5 mg PO Q6H PRN (Reason: Pain) 14 Days Qty: 15 0RF Lanolin (HPA) 100 % Cream 1 applic topical Q1H PRNQty: 7 0RF Continued DHA 200 mg capsule 1 mg PO DAILY escitalopram oxalate 10 mg tablet 10 mg PO QDAY Qty: 90 0RF Discharge Orders: Discharge Order (Routine); Ordered 04/13/24 Ordered By: Danielle Richard Patient Education: (DC) Additional Instructions: POSTOPERATIVE INSTRUCTIONS ACTIVITY No heavy lifting/pushing/pulling for 4-6 weeks. Do not lift anything more than about 15 lbs (such as laundry, groceries, children, pets), vacuum, push heavy doors or grocery carts, etc. You may climb stairs as tolerated. Do not put anything in the vagina for 6 weeks after surgery unless otherwise instructed by your doctor (including tampons, douching, sexual intercourse, etc). No driving for about 2 weeks after surgery, while you are taking narcotic pain medication, or until you feel that you are ready. Practice checking your blind spot and stepping hard on the brake. Avoid sitting or lying in bed for more than 2 hours at a time while you are awake to reduce your risk of blood clots. You may return to work when directed by your physician. Please contact your doctor if you need any return to work letters or medical leave paperwork to be completed. WOUND CARE You will have one large incision on your abdomen. There will be dissolvable stitches under your skin that do not need to be removed. You will also have surgical glue on the incisions and these may be removed like a Band-Aid when they curl up at the edges. Shower daily after surgery. Clean your incision with mild antibacterial soap and water. Pat your incision dry with a clean towel. No tub baths until wound is completely healed. Wash your hands frequently, especially before touching your incision, changing any dressings, after using the restroom, and before eating. PAIN MANAGEMENT Take your oral pain medication as needed. You should be taking Ibuprofen 600mg every 6 hours with 1 gram of Tylenol every 6 hours. You can take these together every six hours or alternate them every 3 hours. You should then take the oxycodone as needed if you have breakthrough pain on top of the Tylenol and Ibuprofen. Some pain medications can cause constipation so you should take a stool softener (i.e. colace) while you are on these medications. You may also take milk of magnesia or Miralax for constipation. WHAT TO EXPECT AT HOME Recovery from surgery is generally 4-6 weeks, but sometimes longer for more strenuous activity. It is normal to be very tired during this time. It is normal to have some drainage or a small amount of vaginal bleeding after surgery which may last up to 6 weeks. You may go home with a worrell catheter in your bladder. You will need to follow up for a nurse visit in 7-10 days for removal. You will most likely experience gas pain, abdominal swelling, or shoulder pain for 24-72 hours after surgery. A warm shower, heating pad, and/or walking may help. BLOOD PRESSURE MONITORING Take your blood pressure daily Let clinic know if your blood pressure is persistently over 140/90. You might need increase in your antihypertensive medication Call and come in for evaluation if you have blood pressure 160/110 or over. Monitor for worsening preeclampsia symptoms such as persistent headache, vision changes, SOB, right upper quadrant/epigastric pain, or rapidly expanding edema. WHEN TO CALL YOUR DOCTOR : Fever (>100.4?F or 38.0?C) or chills. Incision problems such as redness, warmth, swelling, or foul smelling drainage. Severe nausea or persistent vomiting. Bright red vaginal bleeding (soaking >1 pad/hour) or foul smelling vaginal drainage. Severe pain not relieved with pain medication. Pain and swelling in your legs, especially if it is only on one side and not the other. Pain with urination, cloudy urine, or foul smelling urine. Or if you have any other problems or questions. CALL 911 OR GO TO THE EMERGENCY ROOM IF YOU HAVE: Any shortness of breath, difficulty breathing, or chest pain. Activity Level: Activity as Tolerated Discharge Diet: Regular Follow Up Appointments: Provider,Not a Local [Primary Care Provider] - Forms: [employer] Info Instructions
== END 2024-04-13 11:30 | disposition home or self-care (01) | DRG 787 ==
LOC: OB OUT 03:35 → OB 03:35
PROVIDERS: Advanced Practice Midwife; Obstetrics & Gynecology; Admitting Provider Advanced Practice Midwife; Visit Provider Advanced Practice Midwife
PROC: (CPT 59514; principal; 2024-04-10 17:00)
DX: O76 Abnormality in fetal heart rate and rhythm complicating labor and delivery (principal); D62 Acute posthemorrhagic anemia; O99.344 Other mental disorders complicating childbirth; F41.9 Anxiety disorder, unspecified; F32.A Depression, unspecified; O99.824 Streptococcus B carrier state complicating childbirth; O62.2 Other uterine inertia; Z3A.40 40 weeks gestation of pregnancy; Z37.0 Single live birth; O13.5 Gestational [pregnancy-induced] hypertension without significant proteinuria, complicating the puerperium; O90.81 Anemia of the puerperium; R11.2 Nausea with vomiting, unspecified; Q69.9 Polydactyly, unspecified; G43.009 Migraine without aura, not intractable, without status migrainosus; G89.18 Other acute postprocedural pain; O77.0 Labor and delivery complicated by meconium in amniotic fluid
CPT/HCPCS: 01961; 36415; 64488; 76942; 82565; 82570; 83735; 84156; 84450; 84460; 84520; 85018; 85025; 85027; 86592; 86850; 86900; 86901; 88307; 99140; G0463; A9270; C9290; J0290; J0456; J0665; J0690; J1100; J1630; J1650; J1885; J2210; J2250; J2274; J2371; J2405; J2550; J2590; J2765; J3475; J7050; J7120

== ENCOUNTER 2024-05-27 12:12 | Outpatient (CLI) | payer OTHER, SELFPAY | END 2024-05-27 12:13 | disposition home or self-care (01) | LOC: NFLDREF 06-09 14:02 | PROVIDERS: Visit Provider Advanced Practice Midwife | DX: Z12.4 Encounter for screening for malignant neoplasm of cervix (principal) | CPT/HCPCS: 87624 ==

== ENCOUNTER 2024-06-12 14:50 | Outpatient (CLI) | payer OTHER, SELFPAY ==
--- NOTE | 2024-06-12 15:00 | CRLHL7_ITS ---
For Patients: As a result of the Century Cures Act, medical imaging exams and procedure reports are released immediately into your electronic medical record. You may view this report before your referring provider. If you have questions, please contact your health care provider. INDICATION: bleeding COMPARISON: none TECHNIQUE: 2D us scale and color Doppler images were acquired of the pelvis using a transabdominal and transvaginal approach. FINDINGS: Sonographic images demonstrate a normal size and smooth outer contour of the uterus. Uterus measures 7.2 cm in length by 3.6 cm in AP diameter by 5.6 cm in transverse dimension. There is an area of heterogeneous tissue in the lower uterine segment near the section scar measuring 4.3 x 1.8 x 2.5 cm. The endometrial lining appears normal and measures 2.7 mm in composite thickness. A trace amount of endometrial fluid is noted. The right ovary measures 2.8 x 1.5 x 2.1 cm in size and the left ovary is not visualized. The right ovary demonstrates normal arterial and venous blood flow on color Doppler analysis. There are no suspicious fluid collections within the cul-de-sac. IMPRESSION: Focal area of heterogeneity within the lower uterine segment adjacent to the section scar measuring 4.3 cm could represent intramural hematoma. Trace amount of endometrial fluid. No retained products in the endometrial canal. Dictated by Ryan Abernathy MD @ 06/13/2024 9:06:24 AM (Electronically Signed)
== END 2024-06-12 14:51 | disposition home or self-care (01) ==
LOC: US 14:51
PROVIDERS: Visit Provider Advanced Practice Midwife
DX: O72.1 Other immediate postpartum hemorrhage (principal)
CPT/HCPCS: 76830; 76856

== ENCOUNTER 2024-09-03 07:30 | Outpatient (RCR) | payer OTHER, SELFPAY | END 2024-11-28 10:21 | disposition home or self-care (01) | PROVIDERS: Visit Provider Advanced Practice Midwife | DX: N81.89 Other female genital prolapse (principal); Z39.2 Encounter for routine postpartum follow-up; N39.3 Stress incontinence (female) (male); R27.8 Other lack of coordination; Z51.89 Encounter for other specified aftercare | CPT/HCPCS: 97110; 97112; 97161; 97535 ==